=== PATIENT | female | born 1945 | race Caucasian/White ===

== ENCOUNTER 2024-10-01 14:51 | Inpatient (IN) | payer MEDICARE, MEDICAID, SELFPAY ==
[2024-10-01 15:18] VITALS: BP 131/65; BP 142/86; PULSE 82; PULSE 85; RESP 16; TEMP 36.8; O2SAT 96; BMI 36.6
--- NOTE | 2024-10-01 15:30 | PC.NURSE ---
Pt arrived via EMS on section 12, 1:1 sitter bedside. Pt is calm and cooperative, answering questions appropriately. Changed into hospital attire, urine collected and sent.
[2024-10-01 15:39] LABS: Appearance Urine Clear; Color Urine Yellow; Glucose Urine UA Negative (Negative); Leukocyte Esterase Urine Trace (Negative); Nitrite Urine Negative (Negative); PH 5.5 (5.0-9.0); UMIC TRIGGER UACC YES; Urine Blood Negative (Negative); Urine Ketones Negative (Negative); Urine Protein Negative (Neg-Trace)
[2024-10-01 15:41] LABS: Bacteria Urine 4+ (None Seen); Hyaline Casts Urine 0-2 /LPF (0-2); RBC Urine 0-2 /HPF (0-2); WBC Urine 0-5 /HPF (0-5)
[2024-10-01 15:53] LABS: Amphetamine Screen Urine Not Detected (Not Detect); Barbiturates, Urine Not Detected (Not Detect); Benzodiazepines Screen Urine Not Detected (Not Detect); Buprenorphine Scr Not Detected (Not Detect); Cannabinoid Screen Urine Not Detected (Not Detect); Cocaine Screen Urine Not Detected (Not Detect); Fentanyl, urine Not Detected (Not Detect); Methadone Screen, Urine Not Detected (Not Detect); Opiate Screen Urine Not Detected (Not Detect); Oxycodone Screen Urine Not Detected (Not Detect); Phencyclidine Screen Urine Not Detected (Not Detect)
[2024-10-01 16:32] LABS: MANUAL DIFF FLAG NO
[2024-10-01 16:36] LABS: Basophils Absolute Auto 0.1 X10*3/uL (0.0-0.2); Basophils Percent Auto 0.7 % (0-2); Eosinophils Absolute Auto 0.5 X10*3/uL (0.0-0.4); Eosinophils Percent Auto 4.8 % (0-4); Hematocrit 38.4 % (37.0-47.0); Hemoglobin 12.4 g/dl (12.0-16.0); Imm Gran Abs Auto 0.03 X10*3/uL (0.00-0.03); Imm Gran Pct Auto 0.3 % (0.0-0.4); Lymphocytes Absolute Auto 2.2 X10*3/uL (1.2-4.9); Lymphocytes Percent Auto 23.4 % (20-40); Mean Corpuscular HGB Conc 32.3 g/dl (31.0-35.0); Mean Corpuscular Hemoglobin 29.6 pg (27.0-33.0); Mean Corpuscular Volume 91.6 fL (80.0-98.0); Mean Platelet Volume 9.1 fL (9.4-12.3); Monocytes Absolute Auto 0.7 X10*3/uL (0.1-1.2); Monocytes Percent Auto 7.5 % (2-11); Neutrophils Percent Auto 63.3 % (45-73); Platelet Count 231 X10*3/uL (160-400); Red Blood Count 4.19 X10*6/uL (4.20-5.50); Red Cell Distribution Width 13.5 % (11.0-16.0); White Blood Count 9.4 X10*3/uL (4.8-10.8)
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
[2024-10-01 16:51] LABS: Alanine Aminotransferase < 6 U/L (0-31); Albumin Level 4.2 g/dL (3.5-5.0); Alkaline Phosphatase 93 U/L (39-117); Anion Gap 13 (12-20); Aspartate Amino Transferase 19 U/L (5-31); Bilirubin Total 0.2 mg/dL (0.0-1.0); Blood Urea Nitrogen 24 mg/dL (9-16); Calcium 9.7 mg/dL (8.4-10.2); Carbon Dioxide 27 mmol/L (22-29); Chloride 106 mmol/L (96-108); Creatinine Clr Calc Pharmacy 49.4; Estimated Glomerular Filt Rate 49; Ethanol < 10 mg/dL; Glucose Random 89 mg/dL (60-115); Potassium 4.1 mmol/L (3.3-5.1); Sodium 142 mmol/L (135-145); Total Protein 6.9 g/dL (6.5-8.0)
--- NOTE | 2024-10-01 17:12 | PC.NURSE ---
patient ambulated to bathroom, steady gait using walker. patient given sandwich and crackers for snack, with gingerale and water. patient remains calm and cooperative.
--- OUTSIDE RECORDS SUMMARY | 2024-10-01 17:50 | XMS_ITS | Clinical Summary ---
Author Organization [facility] ity Address [id number] [place] [id number] Care Team Providers Care Inhalation Therapist Name Role Phone Tara Montes De Oca MD Primary Care Provider [phone] Social History Tobacco Use Types Packs/Day Years Used Date Smoking Tobacco: Never Assessed Comments Unknown Sex and Gender Information Value Date Recorded Sex Assigned at Not on file Legal Sex Female 3:18 PM EST Gender Identity Not on file Sexual Orientation Not on file Plan of Treatment Health Maintenance Due Date Last Done Comments DTaP,Tdap,and Td Vaccines (1 - Tdap) 1964 Pneumococcal Vaccine: 50+ Ye ars (1 of 1 - PCV) 08/25/1995 Zoster Vaccines (1 of 2) 08/25/1995 RSV Immunization Adult Patie nts (1 - 1-dose 75+ series) 2020 Depression Screening 03/28/2022 Falls Risk Assessment 03/28/2022 Hepatitis C Screening 03/28/2022 Osteoporosis Screening (Bone Density Screening) 03/28/2022 Social Influencers of Health Screening 03/28/2022 COVID-19 Vaccine ( - 2023-2 5 season) 2023 Influenza Vaccine (Season Ended) 2024 HIB Vaccines Aged Out No longer eligi ble based on patient's age to complete this topic HPV Vaccines Aged Out No longer eligi ble based on patient's age to complete this topic Hepatitis A Vaccines Aged Out No long er eligible based on patient's age to complete this topic Hepatitis B Vaccines Aged Out No long er eligible based on patient's age to complete this topic IPV Vaccines Aged Out No longer eligi ble based on patient's age to complete this topic MMR Vaccines Aged Out No longer eligi ble based on patient's age to complete this topic Meningococcal ACWY Vaccine Aged Out N o longer eligible based on patient's age to complete this topic Meningococcal B Vaccine Aged Out No l onger eligible based on patient's age to complete this topic RSV Immunization Patients Un som 20 months Aged Out No longer eligible b ased on patient's age to complete this topic Varicella Vaccines Aged Out No longer eligible based on patient's age to complete this topic Advance Directives Documents on File Type Date Recorded Patient Interventional Sale Consultant Expl anation Health Care Decision (hx) 06/21/2017 AD VELAZQUEZ DIRECTIVE Health Care Decision (hx) 06/21/2017 AD VELAZQUEZ DIRECTIVE Health Care Decision (hx) 06/21/2017 AD VELAZQUEZ DIRECTIVE Health Care Decision (hx) 06/21/2017 AD VELAZQUEZ DIRECTIVE Health Care Decision (hx) 06/21/2017 AD VELAZQUEZ DIRECTIVE Health Care Decision (hx) 06/21/2017 AD VELAZQUEZ DIRECTIVE Health Care Decision (hx) 08/10/2011 AD VELAZQUEZ DIRECTIVE Health Care Decision (hx) 08/10/2011 AD VELAZQUEZ DIRECTIVE Health Care Decision (hx) 08/10/2011 AD VELAZQUEZ DIRECTIVE Health Care Decision (hx) 08/10/2011 AD VELAZQUEZ DIRECTIVE Health Care Decision (hx) 08/10/2011 AD VELAZQUEZ DIRECTIVE Health Care Decision (hx) 08/10/2011 AD VELAZQUEZ DIRECTIVE Care Teams Inhalation Therapist Relationship Specialty Start Date End Date Tara Montes De Oca MD [address] [place] [id number] PCP - General 05/11/22
[2024-10-01 18:08] VITALS: BP 130/61; PULSE 83; RESP 16; TEMP 36.1; O2SAT 93
--- NOTE | 2024-10-01 19:15 | PC.NURSE ---
assumed care of pt at 1900. report received from Senait AVILA
--- NOTE | 2024-10-01 20:07 | PC.NURSE ---
this RN called the care team to inquire about an update on the patient's disposition status. per care team patient was seen in the community by N, was placed on a section 12 and is already a bed search.
[2024-10-01] MEDS: LORazepam 1 MG TABLET PO (21:51)
--- NOTE | 2024-10-01 23:21 | PC.NURSE ---
patient ambulated to and from bathroom with this RN using walker, steady gait. pt placed into hospital bed and given ativan po as requested. pt calm, cooperative, conversive and in no distress. denies any acute complaints or pain. med rec completed and home meds ordered by MD rutherford. pt states she wears cpap at night however does not like the machines we have here as she is claustrophobic and cannot tolerate the full face mask. requested to sleep with just 2L NC instead for sleep apnea. RT okay'd. dentures in cup at bedside. pt given ice and water as requested. call lange within reach, sleeping comfortably in no distress. resp even and unlabored. 1:1 sitter at bedside.
[2024-10-01 23:43] VITALS: BP 111/54; PULSE 65; RESP 16; TEMP 36.6; O2SAT 98
--- NOTE | 2024-10-02 | ECG_ITS ---
Test Reason : CLEARANCE Blood Pressure : */* mmHG Vent. Rate : 73 BPM Atrial Rate : 73 BPM P-R Int : 206 ms QRS Dur : 96 ms QT Int : 398 ms P-R-T Axes : 73 57 51 degrees QTcB Int : 438 ms Sinus rhythm with Fusion complexes Low voltage QRS Incomplete right bundle branch block Borderline ECG No previous ECGs available Referred By: Eugene Boyce Electronically Signed By: Tariq Melendrez
[2024-10-02] MEDS: Acetaminophen 325 MG TABLET 975 MG PO (02:35)
[2024-10-02] MEDS: Carbidopa/Levodopa 25/100 TABLET 1 TAB PO ×3 (02:35→21:40)
[2024-10-02 06:31] VITALS: BP 109/61; PULSE 65; RESP 16; TEMP 36.4; O2SAT 95
[2024-10-02] MEDS: Omeprazole 40 MG CAPSULE.DR PO (07:01)
--- NOTE | 2024-10-02 07:04 | PC.NURSE ---
Pt presented to [facility] via EMS on a section 12 issued by [facility] (N). It was reported upon arrival that pt was evaluated in the community at the request of her daughter due to increased depressive symptoms and paranoia and did not appear to be functioning at her baseline. Per [facility] Crisis she was found appropriate for a higher level of care and sent to the ED to board for placement as well as to be fully medically cleared. Family reported a history of dementia and other long standing mental health issues and indicated that she has been increasingly paranoid at her current assisted living. Pt denied current suicidal or homicidal ideation, plan, or intent however, remains focused on people breaking into her current living arrangement and taking her belongings and remains increasingly paranoid. Patient alert and oriented, pleasant and cooperative. Lungs clear bilat. Respirations even and non-labored. Abdomen large, soft, non-tender with positive bowel sounds. Positive pedal pulses with LE edema noted. Patient states she usually wears TEDS. Constant observation maintained for patients safety.
--- NOTE | 2024-10-02 08:00 | MHC.EDTECH ---
Performed ADL's care on patient full bed bath changed linen patient brushed teeth and hair.patient is a stand by assist with walker. Patient is calm and pleasant no distress, Nurse aware.
--- NOTE | 2024-10-02 08:30 | PHA.MEDREC ---
Pharmacy Consult ? Medication Reconciliation Pharmacy has reviewed the medication reconciliation done by RN. Claims utilized.
[2024-10-02] MEDS: Sertraline HCL 100 MG TABLET PO (09:02)
[2024-10-02] MEDS: Furosemide 20 MG TABLET PO (09:02)
[2024-10-02] MEDS: metFORMIN HCl 500 MG TABLET PO (09:02)
[2024-10-02] MEDS: Sucralfate 1 GM TABLET PO ×3 (09:02→21:40)
[2024-10-02] MEDS: buPROPion HCl XL 150 MG TAB.ER.24H PO (09:03)
[2024-10-02] MEDS: amLODIPine Besylate 5 MG TABLET PO (09:03)
[2024-10-02] MEDS: Sertraline HCL 50 MG TABLET PO (09:03)
--- NOTE | 2024-10-02 14:42 | MHC.CARE ---
Pt was seen for psych consult per Liv Brady INTELLIGENCE SUPPORT OFFICER patient will require inpatient level of care. see psychiatry note for additional recommendations.
[2024-10-02 15:07] VITALS: BP 124/62; PULSE 70; RESP 16; TEMP 36.2; O2SAT 98
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
[2024-10-02 19:06] VITALS: BP 105/60; PULSE 79; RESP 12; TEMP 36.9; O2SAT 92
--- NOTE | 2024-10-02 19:13 | PC.NURSE ---
Took over care from RN Yaz, pt repositioned in bed, pt main on a 1:1. no sign of distress.
--- NOTE | 2024-10-02 19:24 | MHC.EDTECH ---
pt consumed 100% of dinner tray, vitals obtained
[2024-10-02] MEDS: Pravastatin Sodium 20 MG TABLET PO (21:40)
[2024-10-02] MEDS: LORazepam 1 MG TABLET PO (21:45)
--- NOTE | 2024-10-02 21:47 | PC.NURSE ---
medicated per jun, and give report to AUSTIN Bella
[2024-10-02 22:11] VITALS: BP 109/52; PULSE 63; RESP 12; TEMP 36.5; O2SAT 96
[2024-10-03 06:12] VITALS: BP 113/62; PULSE 66; RESP 20; TEMP 36.8; O2SAT 94
[2024-10-03] MEDS: Omeprazole 40 MG CAPSULE.DR PO (06:16)
[2024-10-03] MEDS: Acetaminophen 325 MG TABLET 650 MG PO (06:16)
[2024-10-03 09:50] VITALS: BP 112/50; PULSE 67; RESP 18; TEMP 36.6; O2SAT 95
[2024-10-03] MEDS: Carbidopa/Levodopa 25/100 TABLET 1 TAB PO ×2 (09:52→20:35)
[2024-10-03] MEDS: Sucralfate 1 GM TABLET PO ×4 (09:52→20:35)
[2024-10-03] MEDS: Furosemide 20 MG TABLET PO (09:52)
[2024-10-03] MEDS: Sertraline HCL 50 MG TABLET PO (09:52)
[2024-10-03] MEDS: amLODIPine Besylate 5 MG TABLET PO (09:52)
[2024-10-03] MEDS: buPROPion HCl XL 150 MG TAB.ER.24H PO (09:52)
[2024-10-03] MEDS: Sertraline HCL 100 MG TABLET PO (09:52)
[2024-10-03] MEDS: metFORMIN HCl 500 MG TABLET PO (09:52)
--- NOTE | 2024-10-03 09:54 | MHC.CARE ---
Pt seen by CARE team and [facility], disposition is for inpatient Zeynep admission.
--- NOTE | 2024-10-03 13:49 | PC.NURSE ---
pt calm and cooperative with care. no behavioral concerns at this time.
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
[2024-10-03 19:05] VITALS: BP 122/65; PULSE 78; RESP 16; TEMP 36.1; O2SAT 94
[2024-10-03 19:06] VITALS: BMI 32.6
[2024-10-03 20:00] VITALS: BP 108/60; PULSE 74; RESP 18; TEMP 36.4; O2SAT 99
[2024-10-03] MEDS: Pravastatin Sodium 20 MG TABLET PO (20:35)
[2024-10-03] MEDS: LORazepam 1 MG TABLET PO (21:20)
[2024-10-04] MEDS: Acetaminophen 325 MG TABLET 650 MG PO ×2 (05:23→16:26)
[2024-10-04] MEDS: Omeprazole 40 MG CAPSULE.DR PO (06:00)
[2024-10-04 08:00] VITALS: BP 120/57; PULSE 73; RESP 16; TEMP 36.7; O2SAT 94
[2024-10-04 08:24] LABS: Estimated Average Glucose 120 mg/dL; Hemoglobin A1c % 5.8 % (<6.0)
[2024-10-04 08:41] LABS: Alanine Aminotransferase 9 U/L (0-31); Alkaline Phosphatase 82 U/L (39-117); Anion Gap 12 (12-20); Aspartate Amino Transferase 20 U/L (5-31); Bilirubin Total 0.3 mg/dL (0.0-1.0); Blood Urea Nitrogen 30 mg/dL (9-16); Carbon Dioxide 31 mmol/L (22-29); Chloride 101 mmol/L (96-108); Cholesterol 172 mg/dL (<200); Creatinine Clr Calc Pharmacy 38.9; Estimated Glomerular Filt Rate 40; Glucose Random 110 mg/dL (60-115); HDL Cholesterol 39 mg/dL (>40); LDL Cholesterol Calculated 92 mg/dL (<100); Magnesium 1.9 mg/dL (1.6-2.6); Potassium 4.2 mmol/L (3.3-5.1); Sodium 140 mmol/L (135-145); Total Protein 6.7 g/dL (6.5-8.0); Triglycerides 208 mg/dL (<150)
[2024-10-04 08:43] VITALS: BP 120/57
[2024-10-04] MEDS: metFORMIN HCl 500 MG TABLET PO (08:43)
[2024-10-04] MEDS: Sertraline HCL 100 MG TABLET PO (08:43)
[2024-10-04] MEDS: amLODIPine Besylate 5 MG TABLET PO (08:43)
[2024-10-04 08:44] VITALS: BP 120/57
[2024-10-04] MEDS: Sucralfate 1 GM TABLET PO ×4 (08:44→20:07)
[2024-10-04] MEDS: Carbidopa/Levodopa 25/100 TABLET 1 TAB PO ×2 (08:44→20:07)
[2024-10-04] MEDS: Sertraline HCL 50 MG TABLET PO (08:44)
[2024-10-04] MEDS: buPROPion HCl XL 150 MG TAB.ER.24H PO (08:44)
[2024-10-04] MEDS: Furosemide 20 MG TABLET PO (08:44)
[2024-10-04 08:56] LABS: Free T4 (Free Thyroxine) 0.88 ng/dL (0.71-1.85); Thyroid Stimulating Hormone 2.36 uIU/mL (0.32-4.0)
[2024-10-04 09:12] LABS: Folate 11.2 ng/mL (> or = 4.0); Vitamin B12 174 pg/mL (200-900)
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
[2024-10-04 13:47] VITALS: BMI 36.2
[2024-10-04] MEDS: Brexpiprazole 1 MG TABLET 0.5 MG PO (18:40)
[2024-10-04 19:57] VITALS: BP 112/56; PULSE 62; RESP 18; TEMP 2.3; TEMP 36.1; O2SAT 95
[2024-10-04] MEDS: Pravastatin Sodium 20 MG TABLET PO (20:07)
[2024-10-04] MEDS: Cyanocobalamin (Vitamin B-12) 1,000 MCG/ML VIAL 1000 MCG IM (20:55)
[2024-10-04 22:00] VITALS: RESP 18
[2024-10-05] MEDS: Acetaminophen 325 MG TABLET 650 MG PO ×3 (02:23→21:31)
[2024-10-05] MEDS: Omeprazole 40 MG CAPSULE.DR PO (06:06)
--- NOTE | 2024-10-05 06:21 | PC.NURSE ---
Vitamin B12 was scheduled per JUN; however, the medication was unavailable at the pharmacy and could not be administered early as scheduled. Administered late once made available.
[2024-10-05 08:00] VITALS: BP 121/58; PULSE 62; RESP 12; TEMP 36.3; O2SAT 95
[2024-10-05] MEDS: Brexpiprazole 1 MG TABLET 0.5 MG PO (08:50)
[2024-10-05] MEDS: Sertraline HCL 50 MG TABLET PO (08:51)
[2024-10-05] MEDS: Sucralfate 1 GM TABLET PO ×4 (08:51→20:39)
[2024-10-05] MEDS: Furosemide 20 MG TABLET PO (08:52)
[2024-10-05] MEDS: amLODIPine Besylate 5 MG TABLET PO (08:53)
[2024-10-05] MEDS: metFORMIN HCl 500 MG TABLET PO (08:57)
[2024-10-05] MEDS: Sertraline HCL 100 MG TABLET PO (09:00)
[2024-10-05] MEDS: Carbidopa/Levodopa 25/100 TABLET 1 TAB PO ×2 (09:02→20:39)
[2024-10-05 10:52] LABS: Alanine Aminotransferase 10 U/L (0-31); Albumin Level 4.2 g/dL (3.5-5.0); Alkaline Phosphatase 90 U/L (39-117); Anion Gap 11 (12-20); Aspartate Amino Transferase 20 U/L (5-31); Bilirubin Total 0.3 mg/dL (0.0-1.0); Blood Urea Nitrogen 27 mg/dL (9-16); Calcium 10.1 mg/dL (8.4-10.2); Carbon Dioxide 29 mmol/L (22-29); Chloride 102 mmol/L (96-108); Creatinine Clr Calc Pharmacy 44.5; Estimated Glomerular Filt Rate 44; Glucose Random 136 mg/dL (60-115); Potassium 3.9 mmol/L (3.3-5.1); Sodium 138 mmol/L (135-145); Total Protein 6.9 g/dL (6.5-8.0)
--- NOTE | 2024-10-05 14:57 | PM.EVENT ---
Event Note Date of Service: 10/05/24 Event Note: Patient seen briefly due to edema in her legs. Patient reports that she wears TEDS at home and would like to have some ordered here. Time Spent With Patient Time: Total time managing care of this patient today ____ minutes.
[2024-10-05 20:00] VITALS: BP 145/66; PULSE 67; RESP 16; TEMP 36.8; O2SAT 98
[2024-10-05] MEDS: Pravastatin Sodium 20 MG TABLET PO (20:39)
[2024-10-05] MEDS: LORazepam 1 MG TABLET PO (20:48)
[2024-10-06] MEDS: Acetaminophen 325 MG TABLET 650 MG PO (04:08)
[2024-10-06] MEDS: Omeprazole 40 MG CAPSULE.DR PO (06:06)
[2024-10-06 08:12] VITALS: BP 107/52; PULSE 60; RESP 18; TEMP 36.4; O2SAT 96
[2024-10-06] MEDS: Sertraline HCL 50 MG TABLET PO (08:40)
[2024-10-06] MEDS: Sertraline HCL 100 MG TABLET PO (08:41)
[2024-10-06] MEDS: Brexpiprazole 1 MG TABLET 0.5 MG PO (08:41)
[2024-10-06] MEDS: Furosemide 20 MG TABLET PO (08:41)
[2024-10-06] MEDS: Carbidopa/Levodopa 25/100 TABLET 1 TAB PO ×2 (08:42→19:57)
[2024-10-06] MEDS: metFORMIN HCl 500 MG TABLET PO (08:43)
[2024-10-06] MEDS: amLODIPine Besylate 5 MG TABLET PO (08:43)
[2024-10-06] MEDS: Sucralfate 1 GM TABLET PO ×4 (08:43→19:57)
[2024-10-06] MEDS: Lidocaine 4 % Patch ADH..PATCH 2 PATCH TRANSDERMA (10:59)
[2024-10-06 19:54] VITALS: BP 117/60; PULSE 70; RESP 16; TEMP 36.5; O2SAT 94
[2024-10-06] MEDS: Pravastatin Sodium 20 MG TABLET PO (19:57)
[2024-10-06] MEDS: LORazepam 1 MG TABLET PO (21:08)
[2024-10-06] MEDS: Nystatin Powder 15 GM BOTTLE 1 APPL TOPICAL (21:09)
--- NOTE | 2024-10-07 05:22 | HO.PSYCHPN ---
Subjective Subjective Date of Service: 10/06/24 Reason For Visit: paranoia Interim History: Pt seen and discussed with the team. Reports pain in her R hip/buttock. Lidocaine Patch ordered. Pt reports she is feeling comfortable on the unit, tolerating medications and participating in the milieu. Medication Compliance: Yes Side effects from medications: No Attending Groups: Yes Review of Systems Acute medical concerns: No Review of Systems Review of Systems Pain R hip Mental Status Exam Mental Status Exam Patient Appearance: Appropriate Patient Orientation: Person and Place Level of Consciousness: Alert Patient Behavior: Talkative Mood Description: Depressed Affect Description: Flat Patient Cognition Impaired: Yes Ability to Follow Directions: Fair Speech Pattern: Spontaneous Speech Memory Description: Remote Impaired Thought Content: positive for Suicidal Ideation (denies) Judgement: Poor Diagnostics Vital Signs (24Hr): Vital Signs - 24 hr 10/06/24 08:12 10/06/24 19:54 Temperature 97.5 F 97.7 F Pulse Rate 60 70 Respiratory Rate 18 16 Blood Pressure 107/52 L 117/60 Pulse Oximetry 96 94 Oxygen Delivery Method Room Air Room Air BMI result Body Mass Index 36.2 Labs 10/01/24 16:10 10/05/24 10:30 Labs: Laboratory Results - last 48 hr 10/05/24 10:30 Sodium 138 Potassium 3.9 Chloride 102 Carbon Dioxide 29 Anion Gap 11 L BUN 27 H Creatinine 1.19 Estim Creat Clear Calc 44.5 Estimated GFR 44 Random Glucose 136 H Calcium 10.1 Total Bilirubin 0.3 AST 20 ALT 10 Alkaline Phosphatase 90 Total Protein 6.9 Albumin 4.2 Medications Medications Current Medications Acetaminophen (Acetaminophen 325 Mg Tablet) 650 mg PO Q6H PRN PRN Reason: Headache/Pain, Scale 1-10 Last Admin: 10/06/24 04:08 Dose: 650 mg Al Hydroxide/Mg Hydroxide (Magnesium Hydrox/Alum Hydrox 30 Ml Oral.Susp) 30 ml PO Q6H PRN PRN Reason: Heartburn/Nausea Amlodipine Besylate (Amlodipine Besylate 5 Mg Tablet) 5 mg PO DAILY [facility]; Protocol Last Admin: 10/06/24 08:43 Dose: 5 mg Brexpiprazole (Brexpiprazole 1 Mg Tablet) 0.5 mg PO DAILY [facility] Last Admin: 10/06/24 08:41 Dose: 0.5 mg Carbidopa/Levodopa (Carbidopa/Levodopa 25/100 Tablet) 1 tab PO BID [facility] Last Admin: 10/06/24 19:57 Dose: 1 tab Cyanocobalamin (Cyanocobalamin (Vitamin B-12) 1,000 Mcg/Ml Vial) 1,000 mcg IM Q7D [facility] Stop: 10/25/24 17:16 Last Admin: 10/04/24 20:55 Dose: 1,000 mcg Furosemide (Furosemide 20 Mg Tablet) 20 mg PO DAILY [facility]; Protocol Last Admin: 10/06/24 08:41 Dose: 20 mg Lidocaine (Lidocaine 4 % Patch Adh..Patch) 2 patch TRANSDERMA DAILY [facility]; Protocol Last Admin: 10/06/24 10:59 Dose: 2 patch Lorazepam (Lorazepam 1 Mg Tablet) 1 mg PO BEDTIME PRN PRN Reason: Anxiety Last Admin: 10/06/24 21:08 Dose: 1 mg Magnesium Hydroxide (Milk Of Magnesia 30 Ml Oral.Susp) 30 ml PO DAILY PRN PRN Reason: Constipation Metformin HCl (Metformin Hcl 500 Mg Tablet) 500 mg PO DAILY [facility] Last Admin: 10/06/24 08:43 Dose: 500 mg Nystatin (Nystatin Powder 15 Gm Bottle) 1 appl TOPICAL TID [facility]; Protocol Last Admin: 10/06/24 21:09 Dose: 1 appl Omeprazole (Omeprazole 40 Mg Capsule.Dr) 40 mg PO DAILY@0630 [facility] Last Admin: 10/06/24 06:06 Dose: 40 mg Pravastatin Sodium (Pravastatin Sodium 20 Mg Tablet) 20 mg PO BEDTIME [facility] Last Admin: 10/06/24 19:57 Dose: 20 mg Sertraline HCl (Sertraline Hcl 50 Mg Tablet) 50 mg PO DAILY [facility] Last Admin: 10/06/24 08:40 Dose: 50 mg Sertraline HCl (Sertraline Hcl 100 Mg Tablet) 100 mg PO DAILY [facility] Last Admin: 10/06/24 08:41 Dose: 100 mg Sucralfate (Sucralfate 1 Gm Tablet) 1 gm PO QID [facility] Last Admin: 10/06/24 19:57 Dose: 1 gm Trazodone HCl (Trazodone Hcl 50 Mg Tablet) 50 mg PO BEDTIME PRN PRN Reason: Insomnia Allergies Allergies Allergy/AdvReac Type Severity Reaction Status Date / Time No Known Allergies Allergy Verified 10/01/24 15:21 Assessment & Plan Assessment & Plan (1) Lewy body dementia with psychotic disturbance: Status: Acute Code(s): G31.83 - Neurocognitive disorder with Lewy bodies; F02.82 - Dementia in other diseases classified elsewhere, unspecified severity, with psychotic disturbance Plan Mrs. Holland is a 79 year-old woman with hx of Lewy BOdy Dementia who was brought to [facility] due to increase paranoid delusions of people entering her room and stealing from her. It appears this has been going on for the past year but with increase intensity now. She is on number of medication with dopaminergic properties which can contribute or exacerbate delusions and/or psychosis including wellbutrin and sinemmet. We discussed inpatient psych admission for management of paranoid delusions given that in context of Lewy Body Dementia individuals tend to be very sensity to psychotropic medications, especially use of antipsychotic. 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 Pt is in agreement to inpt admission. Left VM to daughter Marcie to discuss dispo and medication changes. Will contact OP psych provider also to coordinate care. PLAN 1. Admit to S1, CV, 5 minutes checks for safety. 2. d/c wellutrin. Start rexulti 0.5mg po daily for paranoid delusions. monitor exacerbation of motor s/s of LBD. 3. obtain collateral information 4. OT assessments 5. Aftercare planning. 10/06: Lidocaine Patch, R Hip, Buttock ordered Reason for continued inpatient stay Substantial Risk for: rapid decompensation and med/psych decompensation Time Spent With Patient Time: Total time managing care of this patient today ____ minutes.
--- NOTE | 2024-10-07 05:26 | HO.PSYCHPN ---
Subjective Subjective Date of Service: 10/07/24 Reason For Visit: paranoia Interim History: Pt seen, discussed with the team. Pt actively participating in milieu. Team reports pt is less anxious, settling in, eating and reports pain is improved. Pt concurs, I am feeling better. Medication Compliance: Yes Side effects from medications: No Attending Groups: Yes Review of Systems Acute medical concerns: No Review of Systems Review of Systems Denies today Mental Status Exam Mental Status Exam Patient Appearance: Appropriate Patient Orientation: Person and Place Level of Consciousness: Alert Patient Behavior: Talkative Mood Description: Calm and Constricted Affect Description: Constricted Patient Cognition Impaired: Yes Ability to Follow Directions: Fair Speech Pattern: Spontaneous Speech Memory Description: Remote Impaired Thought Content: positive for Suicidal Ideation (denies) Judgement: Poor Diagnostics Vital Signs (24Hr): Vital Signs - 24 hr 10/06/24 08:12 10/06/24 19:54 Temperature 97.5 F 97.7 F Pulse Rate 60 70 Respiratory Rate 18 16 Blood Pressure 107/52 L 117/60 Pulse Oximetry 96 94 Oxygen Delivery Method Room Air Room Air BMI result Body Mass Index 36.2 Labs 10/01/24 16:10 10/05/24 10:30 Labs: Laboratory Results - last 48 hr 10/05/24 10:30 Sodium 138 Potassium 3.9 Chloride 102 Carbon Dioxide 29 Anion Gap 11 L BUN 27 H Creatinine 1.19 Estim Creat Clear Calc 44.5 Estimated GFR 44 Random Glucose 136 H Calcium 10.1 Total Bilirubin 0.3 AST 20 ALT 10 Alkaline Phosphatase 90 Total Protein 6.9 Albumin 4.2 Medications Medications Current Medications Acetaminophen (Acetaminophen 325 Mg Tablet) 650 mg PO Q6H PRN PRN Reason: Headache/Pain, Scale 1-10 Last Admin: 10/06/24 04:08 Dose: 650 mg Al Hydroxide/Mg Hydroxide (Magnesium Hydrox/Alum Hydrox 30 Ml Oral.Susp) 30 ml PO Q6H PRN PRN Reason: Heartburn/Nausea Amlodipine Besylate (Amlodipine Besylate 5 Mg Tablet) 5 mg PO DAILY [facility]; Protocol Last Admin: 10/06/24 08:43 Dose: 5 mg Brexpiprazole (Brexpiprazole 1 Mg Tablet) 0.5 mg PO DAILY [facility] Last Admin: 10/06/24 08:41 Dose: 0.5 mg Carbidopa/Levodopa (Carbidopa/Levodopa 25/100 Tablet) 1 tab PO BID [facility] Last Admin: 10/06/24 19:57 Dose: 1 tab Cyanocobalamin (Cyanocobalamin (Vitamin B-12) 1,000 Mcg/Ml Vial) 1,000 mcg IM Q7D [facility] Stop: 10/25/24 17:16 Last Admin: 10/04/24 20:55 Dose: 1,000 mcg Furosemide (Furosemide 20 Mg Tablet) 20 mg PO DAILY [facility]; Protocol Last Admin: 10/06/24 08:41 Dose: 20 mg Lidocaine (Lidocaine 4 % Patch Adh..Patch) 2 patch TRANSDERMA DAILY [facility]; Protocol Last Admin: 10/06/24 10:59 Dose: 2 patch Lorazepam (Lorazepam 1 Mg Tablet) 1 mg PO BEDTIME PRN PRN Reason: Anxiety Last Admin: 10/06/24 21:08 Dose: 1 mg Magnesium Hydroxide (Milk Of Magnesia 30 Ml Oral.Susp) 30 ml PO DAILY PRN PRN Reason: Constipation Metformin HCl (Metformin Hcl 500 Mg Tablet) 500 mg PO DAILY [facility] Last Admin: 10/06/24 08:43 Dose: 500 mg Nystatin (Nystatin Powder 15 Gm Bottle) 1 appl TOPICAL TID [facility]; Protocol Last Admin: 10/06/24 21:09 Dose: 1 appl Omeprazole (Omeprazole 40 Mg Capsule.Dr) 40 mg PO DAILY@0630 [facility] Last Admin: 10/06/24 06:06 Dose: 40 mg Pravastatin Sodium (Pravastatin Sodium 20 Mg Tablet) 20 mg PO BEDTIME [facility] Last Admin: 10/06/24 19:57 Dose: 20 mg Sertraline HCl (Sertraline Hcl 50 Mg Tablet) 50 mg PO DAILY [facility] Last Admin: 10/06/24 08:40 Dose: 50 mg Sertraline HCl (Sertraline Hcl 100 Mg Tablet) 100 mg PO DAILY [facility] Last Admin: 10/06/24 08:41 Dose: 100 mg Sucralfate (Sucralfate 1 Gm Tablet) 1 gm PO QID [facility] Last Admin: 10/06/24 19:57 Dose: 1 gm Trazodone HCl (Trazodone Hcl 50 Mg Tablet) 50 mg PO BEDTIME PRN PRN Reason: Insomnia Allergies Allergies Allergy/AdvReac Type Severity Reaction Status Date / Time No Known Allergies Allergy Verified 10/01/24 15:21 Assessment & Plan Assessment & Plan (1) Lewy body dementia with psychotic disturbance: Status: Acute Code(s): G31.83 - Neurocognitive disorder with Lewy bodies; F02.82 - Dementia in other diseases classified elsewhere, unspecified severity, with psychotic disturbance Plan Mrs. Holland is a 79 year-old woman with hx of Lewy BOdy Dementia who was brought to [facility] [place] [facility] due to increase paranoid delusions of people entering her room and stealing from her. It appears this has been going on for the past year but with increase intensity now. She is on number of medication with dopaminergic properties which can contribute or exacerbate delusions and/or psychosis including wellbutrin and sinemmet. We discussed inpatient psych admission for management of paranoid delusions given that in context of Lewy Body Dementia individuals tend to be very sensity to psychotropic medications, especially use of antipsychotic. 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 Pt is in agreement to inpt admission. Left VM to daughter Marcie to discuss dispo and medication changes. Will contact OP psych provider also to coordinate care. PLAN 1. Admit to S1, CV, 5 minutes checks for safety. 2. d/c wellutrin. Start rexulti 0.5mg po daily for paranoid delusions. monitor exacerbation of motor s/s of LBD. 3. obtain collateral information 4. OT assessments 5. Aftercare planning. 10/07: Continue tx Reason for continued inpatient stay Substantial Risk for: rapid decompensation Time Spent With Patient Time: Total time managing care of this patient today ____ minutes.
[2024-10-07] MEDS: Omeprazole 40 MG CAPSULE.DR PO (05:32)
[2024-10-07] MEDS: Lidocaine 4 % Patch ADH..PATCH 2 PATCH TRANSDERMA (05:47)
--- NOTE | 2024-10-07 06:12 | PC.NURSE ---
Patient requested her AM lidocaine patch, administered as requested, provider made aware, and Okayed it.
[2024-10-07 08:42] VITALS: BP 104/58; PULSE 67; RESP 18; TEMP 36.2; O2SAT 94
[2024-10-07] MEDS: Nystatin Powder 15 GM BOTTLE 1 APPL TOPICAL ×3 (08:44→21:05)
[2024-10-07] MEDS: Brexpiprazole 1 MG TABLET 0.5 MG PO (08:45)
[2024-10-07] MEDS: Sertraline HCL 50 MG TABLET PO (08:46)
[2024-10-07] MEDS: Sucralfate 1 GM TABLET PO ×4 (08:46→20:25)
[2024-10-07] MEDS: Carbidopa/Levodopa 25/100 TABLET 1 TAB PO ×2 (08:46→20:25)
[2024-10-07] MEDS: metFORMIN HCl 500 MG TABLET PO (08:47)
[2024-10-07] MEDS: Sertraline HCL 100 MG TABLET PO (08:47)
[2024-10-07] MEDS: Furosemide 20 MG TABLET PO (08:47)
[2024-10-07] MEDS: amLODIPine Besylate 5 MG TABLET PO (08:48)
[2024-10-07 20:00] VITALS: BP 124/60; PULSE 82; RESP 18; TEMP 36.6; O2SAT 93
[2024-10-07] MEDS: Pravastatin Sodium 20 MG TABLET PO (20:25)
[2024-10-07] MEDS: Acetaminophen 325 MG TABLET 650 MG PO (23:00)
[2024-10-08] MEDS: Omeprazole 40 MG CAPSULE.DR PO (05:42)
[2024-10-08 08:00] VITALS: BP 125/66; PULSE 70; RESP 18; TEMP 36.5; O2SAT 97
[2024-10-08] MEDS: Lidocaine 4 % Patch ADH..PATCH 2 PATCH TRANSDERMA (08:50)
[2024-10-08 08:51] VITALS: BP 125/66
[2024-10-08] MEDS: amLODIPine Besylate 5 MG TABLET PO (08:51)
[2024-10-08] MEDS: Furosemide 20 MG TABLET PO (08:51)
[2024-10-08] MEDS: Sertraline HCL 100 MG TABLET PO (08:52)
[2024-10-08] MEDS: Sucralfate 1 GM TABLET PO ×4 (08:52→20:58)
[2024-10-08] MEDS: metFORMIN HCl 500 MG TABLET PO (08:52)
[2024-10-08] MEDS: Carbidopa/Levodopa 25/100 TABLET 1 TAB PO ×2 (08:52→20:59)
[2024-10-08] MEDS: Sertraline HCL 50 MG TABLET PO (08:52)
[2024-10-08] MEDS: Brexpiprazole 1 MG TABLET 0.5 MG PO (08:54)
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
[2024-10-08] MEDS: Nystatin Powder 15 GM BOTTLE 1 APPL TOPICAL ×2 (10:49→14:45)
[2024-10-08] MEDS: Acetaminophen 325 MG TABLET 650 MG PO ×2 (10:49→21:13)
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
[2024-10-08 20:00] VITALS: BP 116/57; PULSE 65; RESP 16; TEMP 36.8; O2SAT 94
[2024-10-08] MEDS: Pravastatin Sodium 20 MG TABLET PO (20:59)
[2024-10-08] MEDS: LORazepam 1 MG TABLET PO (21:13)
[2024-10-08 22:29] VITALS: PULSE 68; RESP 18; O2SAT 97
[2024-10-09] MEDS: Omeprazole 40 MG CAPSULE.DR PO (05:59)
[2024-10-09] MEDS: Acetaminophen 325 MG TABLET 650 MG PO (06:09)
[2024-10-09 08:00] VITALS: BP 115/61; PULSE 62; RESP 16; TEMP 36.7; O2SAT 95
[2024-10-09 08:40] VITALS: BP 115/61
[2024-10-09] MEDS: Furosemide 20 MG TABLET PO (08:40)
[2024-10-09] MEDS: Sucralfate 1 GM TABLET PO ×4 (08:40→20:24)
[2024-10-09] MEDS: Sertraline HCL 100 MG TABLET PO (08:40)
[2024-10-09] MEDS: Sertraline HCL 50 MG TABLET PO (08:40)
[2024-10-09] MEDS: metFORMIN HCl 500 MG TABLET PO (08:40)
[2024-10-09] MEDS: Carbidopa/Levodopa 25/100 TABLET 1 TAB PO ×2 (08:40→20:24)
[2024-10-09 08:41] VITALS: BP 115/61
[2024-10-09] MEDS: Brexpiprazole 1 MG TABLET 0.5 MG PO (08:41)
[2024-10-09] MEDS: amLODIPine Besylate 5 MG TABLET PO (08:41)
[2024-10-09] MEDS: Nystatin Powder 15 GM BOTTLE 1 APPL TOPICAL ×2 (08:44→16:24)
[2024-10-09] MEDS: Lidocaine 4 % Patch ADH..PATCH 2 PATCH TRANSDERMA (08:44)
[2024-10-09 09:34] LABS: Estimated Glomerular Filt Rate 44
[2024-10-09 20:00] VITALS: BP 118/60; PULSE 66; RESP 18; TEMP 36.3; O2SAT 92
[2024-10-09] MEDS: Pravastatin Sodium 20 MG TABLET PO (20:24)
[2024-10-09] MEDS: LORazepam 1 MG TABLET PO (20:32)
[2024-10-09 23:42] VITALS: PULSE 61; RESP 15; O2SAT 98
[2024-10-10] MEDS: Omeprazole 40 MG CAPSULE.DR PO (06:05)
[2024-10-10] MEDS: Acetaminophen 325 MG TABLET 650 MG PO (06:14)
[2024-10-10 08:00] VITALS: BP 140/63; PULSE 69; RESP 16; TEMP 36.6; O2SAT 98
[2024-10-10] MEDS: Sertraline HCL 50 MG TABLET PO (08:45)
[2024-10-10] MEDS: Brexpiprazole 1 MG TABLET 0.5 MG PO (08:45)
[2024-10-10] MEDS: Sucralfate 1 GM TABLET PO ×4 (08:46→20:55)
[2024-10-10] MEDS: Carbidopa/Levodopa 25/100 TABLET 1 TAB PO ×2 (08:46→20:55)
[2024-10-10] MEDS: amLODIPine Besylate 5 MG TABLET PO (08:46)
[2024-10-10] MEDS: metFORMIN HCl 500 MG TABLET PO (08:46)
[2024-10-10] MEDS: Sertraline HCL 100 MG TABLET PO (08:46)
[2024-10-10] MEDS: Furosemide 20 MG TABLET PO (08:47)
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
[2024-10-10] MEDS: Lidocaine 4 % Patch ADH..PATCH 2 PATCH TRANSDERMA (12:22)
[2024-10-10 20:00] VITALS: BP 113/60; PULSE 63; RESP 18; TEMP 36.4; O2SAT 97
[2024-10-10] MEDS: Pravastatin Sodium 20 MG TABLET PO (20:55)
[2024-10-10] MEDS: LORazepam 1 MG TABLET PO (20:58)
[2024-10-10 22:40] VITALS: RESP 18
[2024-10-11] MEDS: Omeprazole 40 MG CAPSULE.DR PO (05:57)
[2024-10-11 08:00] VITALS: BP 116/57; PULSE 71; RESP 13; TEMP 2.6; TEMP 36.7; O2SAT 97; BMI 36.4
[2024-10-11] MEDS: Lidocaine 4 % Patch ADH..PATCH 2 PATCH TRANSDERMA (09:05)
[2024-10-11] MEDS: Brexpiprazole 1 MG TABLET 0.5 MG PO (09:08)
[2024-10-11] MEDS: metFORMIN HCl 500 MG TABLET PO (09:09)
[2024-10-11] MEDS: Sertraline HCL 100 MG TABLET PO (09:09)
[2024-10-11] MEDS: Sertraline HCL 50 MG TABLET PO (09:09)
[2024-10-11] MEDS: Carbidopa/Levodopa 25/100 TABLET 1 TAB PO ×2 (09:09→20:24)
[2024-10-11 09:10] VITALS: BP 117/57
[2024-10-11] MEDS: amLODIPine Besylate 5 MG TABLET PO (09:10)
[2024-10-11] MEDS: Furosemide 20 MG TABLET PO (09:12)
[2024-10-11] MEDS: Sucralfate 1 GM TABLET PO ×4 (09:13→20:23)
--- NOTE | 2024-10-11 10:20 | P.EN_ITS ---
Event Note Date of Service: 10/11/24 Time Spent With Patient Time: Total time managing care of this patient today ____ minutes. Medications Medications Medications: Current Medications Amlodipine Besylate (Amlodipine Besylate 5 Mg Tablet) 5 mg PO DAILY [facility]; Protocol Last Admin: 10/11/24 09:10 Dose: 5 mg Brexpiprazole (Brexpiprazole 1 Mg Tablet) 0.5 mg PO DAILY [facility] Last Admin: 10/11/24 09:08 Dose: 0.5 mg Carbidopa/Levodopa (Carbidopa/Levodopa 25/100 Tablet) 1 tab PO BID [facility] Last Admin: 10/11/24 09:09 Dose: 1 tab Cyanocobalamin (Cyanocobalamin (Vitamin B-12) 500 Mcg Tablet) 500 mcg PO DAILY [facility] Furosemide (Furosemide 20 Mg Tablet) 20 mg PO DAILY [facility]; Protocol Last Admin: 10/11/24 09:12 Dose: 20 mg Lidocaine (Lidocaine 4 % Patch Adh..Patch) 2 patch TRANSDERMA DAILY [facility]; Protocol Last Admin: 10/11/24 09:05 Dose: 2 patch Lorazepam (Lorazepam 1 Mg Tablet) 1 mg PO BEDTIME PRN PRN Reason: sleep Last Admin: 10/10/24 20:58 Dose: 1 mg Metformin HCl (Metformin Hcl 500 Mg Tablet) 500 mg PO DAILY [facility] Last Admin: 10/11/24 09:09 Dose: 500 mg Nystatin (Nystatin Powder 15 Gm Bottle) 1 appl TOPICAL TID [facility]; Protocol Last Admin: 10/11/24 09:16 Dose: Not Given Omeprazole (Omeprazole 40 Mg Capsule.Dr) 40 mg PO DAILY@0630 [facility] Last Admin: 10/11/24 05:57 Dose: 40 mg Pravastatin Sodium (Pravastatin Sodium 20 Mg Tablet) 20 mg PO BEDTIME [facility] Last Admin: 10/10/24 20:55 Dose: 20 mg Sertraline HCl (Sertraline Hcl 50 Mg Tablet) 50 mg PO DAILY [facility] Last Admin: 10/11/24 09:09 Dose: 50 mg Sertraline HCl (Sertraline Hcl 100 Mg Tablet) 100 mg PO DAILY [facility] Last Admin: 10/11/24 09:09 Dose: 100 mg Sucralfate (Sucralfate 1 Gm Tablet) 1 gm PO QID [facility] Last Admin: 10/11/24 09:13 Dose: 1 gm Trazodone HCl (Trazodone Hcl 50 Mg Tablet) 50 mg PO BEDTIME PRN PRN Reason: Insomnia
--- NOTE | 2024-10-11 17:15 | HO.PSYCHPN ---
Subjective Subjective Date of Service: 10/11/24 Reason For Visit: paranoia Subjective Notes: Conditional Voluntary Interim History: Pt slept through the night. Pt reports she feels better. She reports her mood is best it has been in several years. She denies SI/HI. less paranoid about staff at [facility] but still thinks this may be happening. Family meeting held to discuss d/c, med changes, d/c 10/12. Pt upset prior to meeting as she thought we were talking about her without her present. Medication Compliance: Yes Review of Systems Review of Systems Denies today Yes all other systems are reviewed and are negative Mental Status Exam Mental Status Exam Narrative: Appearance: wearing hospital gown, fair hygiene, in NAD Behavior: cooperative, friendly Psychomotor: no resting tremors noted. no agitation or retardation noted Speech: clear, normal rate/rhythm/volume, spontaneous TP: tangential, but no loose associations TC: worried about people entering her room, but hoping to be able to return to [facility] Mood: better Affect: congruent, brighter SI: denies HI: denies VH/AH: none Delusions: paranoid delusions. Insight/judgment: poor x 2. Memory/cog: alert, oriented x 4. MOCA on 10/04/2024 scored 16/30 (with impairments in visuo spatial, recall,language fluency). Her orientation is intact. She was able to complete clock draw test. naming and orientation are intact. ACL is 3.6 showing more severe cognitive impairment. Diagnostics Vital Signs (24Hr): Vital Signs - 24 hr 10/10/24 20:00 10/10/24 22:40 10/11/24 08:00 Temperature 97.6 F 36.7 F L Pulse Rate 63 71 Respiratory Rate 18 18 13 Blood Pressure 113/60 116/57 L Pulse Oximetry 97 97 Oxygen Delivery Method Room Air Room Air 10/11/24 09:10 Temperature Pulse Rate Respiratory Rate Blood Pressure 117/57 L Pulse Oximetry Oxygen Delivery Method BMI result Body Mass Index 36.4 Labs 10/01/24 16:10 10/09/24 09:15 Medications Medications Current Medications Acetaminophen (Acetaminophen 325 Mg Tablet) 650 mg PO Q6H PRN PRN Reason: Headache/Pain, Scale 1-10 Last Admin: 10/10/24 06:14 Dose: 650 mg Al Hydroxide/Mg Hydroxide (Magnesium Hydrox/Alum Hydrox 30 Ml Oral.Susp) 30 ml PO Q6H PRN PRN Reason: Heartburn/Nausea Amlodipine Besylate (Amlodipine Besylate 5 Mg Tablet) 5 mg PO DAILY [facility]; Protocol Last Admin: 10/11/24 09:10 Dose: 5 mg Brexpiprazole (Brexpiprazole 1 Mg Tablet) 0.5 mg PO DAILY [facility] Last Admin: 10/11/24 09:08 Dose: 0.5 mg Carbidopa/Levodopa (Carbidopa/Levodopa 25/100 Tablet) 1 tab PO BID [facility] Last Admin: 10/11/24 09:09 Dose: 1 tab Cyanocobalamin (Cyanocobalamin (Vitamin B-12) 1,000 Mcg/Ml Vial) 1,000 mcg IM Q7D [facility] Stop: 10/25/24 17:16 Last Admin: 10/04/24 20:55 Dose: 1,000 mcg Cyanocobalamin (Cyanocobalamin (Vitamin B-12) 500 Mcg Tablet) 500 mcg PO DAILY [facility] Furosemide (Furosemide 20 Mg Tablet) 20 mg PO DAILY [facility]; Protocol Last Admin: 10/11/24 09:12 Dose: 20 mg Lidocaine (Lidocaine 4 % Patch Adh..Patch) 2 patch TRANSDERMA DAILY [facility]; Protocol Last Admin: 10/11/24 09:05 Dose: 2 patch Lorazepam (Lorazepam 1 Mg Tablet) 1 mg PO BEDTIME PRN PRN Reason: sleep Last Admin: 10/10/24 20:58 Dose: 1 mg Magnesium Hydroxide (Milk Of Magnesia 30 Ml Oral.Susp) 30 ml PO DAILY PRN PRN Reason: Constipation Metformin HCl (Metformin Hcl 500 Mg Tablet) 500 mg PO DAILY [facility] Last Admin: 10/11/24 09:09 Dose: 500 mg Nystatin (Nystatin Powder 15 Gm Bottle) 1 appl TOPICAL TID [facility]; Protocol Last Admin: 10/11/24 15:45 Dose: Not Given Omeprazole (Omeprazole 40 Mg Capsule.Dr) 40 mg PO DAILY@30 [facility] Last Admin: 10/11/24 05:57 Dose: 40 mg Pravastatin Sodium (Pravastatin Sodium 20 Mg Tablet) 20 mg PO BEDTIME [facility] Last Admin: 10/10/24 20:55 Dose: 20 mg Sertraline HCl (Sertraline Hcl 50 Mg Tablet) 50 mg PO DAILY [facility] Last Admin: 10/11/24 09:09 Dose: 50 mg Sertraline HCl (Sertraline Hcl 100 Mg Tablet) 100 mg PO DAILY [facility] Last Admin: 10/11/24 09:09 Dose: 100 mg Sucralfate (Sucralfate 1 Gm Tablet) 1 gm PO QID [facility] Last Admin: 10/11/24 13:31 Dose: 1 gm Trazodone HCl (Trazodone Hcl 50 Mg Tablet) 50 mg PO BEDTIME PRN PRN Reason: Insomnia Allergies Allergies Allergy/AdvReac Type Severity Reaction Status Date / Time No Known Allergies Allergy Verified 10/01/24 15:21 Assessment & Plan Assessment & Plan (1) Lewy body dementia with psychotic disturbance: Status: Acute Code(s): G31.83 - Neurocognitive disorder with Lewy bodies; F02.82 - Dementia in other diseases classified elsewhere, unspecified severity, with psychotic disturbance Plan Mrs. Holland is a 79 year-old woman with hx of Lewy BOdy Dementia who was brought [place] [facility] due to increase paranoid delusions of people entering her room and stealing from her. It appears this has been going on for the past year but with increase intensity now. She is on number of medication with dopaminergic properties which can contribute or exacerbate delusions and/or psychosis including wellbutrin and sinemmet. We discussed inpatient psych admission for management of paranoid delusions given that in context of Lewy Body Dementia individuals tend to be very sensity to psychotropic medications, especially use of antipsychotic. 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 Pt is in agreement to inpt admission. Left VM to daughter Marcie to discuss dispo and medication changes. Will contact OP psych provider also to coordinate care. PLAN 10/08- continue current medications. coordination of care and collateral information obtained from OP provider Janel Jones. 10/09 continue tx. family meeting schedule this week to plan d/c. 10/10 continue tx. 10/11 continue tx. Reason for continued inpatient stay Substantial Risk for: inability to function Time Spent With Patient Time: Total time managing care of this patient today ____ minutes.
[2024-10-11] MEDS: Cyanocobalamin (Vitamin B-12) 1,000 MCG/ML VIAL 1000 MCG IM (17:31)
[2024-10-11 20:00] VITALS: BP 90/51; PULSE 78; RESP 18; TEMP 36.2; O2SAT 97
[2024-10-11] MEDS: Pravastatin Sodium 20 MG TABLET PO (20:24)
[2024-10-11] MEDS: LORazepam 1 MG TABLET PO (20:24)
[2024-10-11 22:47] VITALS: RESP 18
[2024-10-12] MEDS: Omeprazole 40 MG CAPSULE.DR PO (05:58)
[2024-10-12] MEDS: amLODIPine Besylate 5 MG TABLET PO (08:33)
[2024-10-12] MEDS: Brexpiprazole 1 MG TABLET 0.5 MG PO (08:33)
[2024-10-12] MEDS: metFORMIN HCl 500 MG TABLET PO (08:33)
[2024-10-12] MEDS: Furosemide 20 MG TABLET PO (08:34)
[2024-10-12] MEDS: Carbidopa/Levodopa 25/100 TABLET 1 TAB PO (08:34)
[2024-10-12] MEDS: Cyanocobalamin (Vitamin B-12) 500 MCG TABLET PO (08:34)
[2024-10-12] MEDS: Sertraline HCL 100 MG TABLET PO (08:34)
[2024-10-12] MEDS: Sertraline HCL 50 MG TABLET PO (08:34)
[2024-10-12] MEDS: Sucralfate 1 GM TABLET PO (08:34)
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
[2024-10-12] MEDS: Lidocaine 4 % Patch ADH..PATCH 2 PATCH TRANSDERMA (11:54)
[2024-10-12] MEDS: Nystatin Powder 15 GM BOTTLE 1 APPL TOPICAL (11:55)
== END 2024-10-12 11:37 | DRG 57 ==
LOC: HO.ED 10-03 13:58 → HO.PGERI 10-03 14:01
PROVIDERS: Admitting Provider Social Worker; Emergency Provider Internal Medicine; PCP Family Medicine; Visit Provider Social Worker
DX: G31.83 Neurocognitive disorder with Lewy bodies (principal); F02.82 Dementia in other diseases classified elsewhere, unspecified severity, with psychotic disturbance; Z79.899 Other long term (current) drug therapy
CPT/HCPCS: 36415; 80053; 80061; 80307; 81001; 82565; 82607; 82746; 83036; 83735; 84439; 84443; 85025; 93005; 94660; 99285; J3420; S9485

== ENCOUNTER → 2024-10-01 15:51 | Outpatient (BNV) | payer MEDICARE, SELFPAY | PROVIDERS: Emergency Provider Internal Medicine; PCP Family Medicine; Visit Provider Social Worker | DX: G31.83 Neurocognitive disorder with Lewy bodies (principal); F02.82 Dementia in other diseases classified elsewhere, unspecified severity, with psychotic disturbance | CPT/HCPCS: 90792; 99231; 99232; 99239; 99499 ==

== ENCOUNTER → 2024-10-02 08:15 | Outpatient (BNV) | payer MEDICARE, SELFPAY | PROVIDERS: Admitting Provider Social Worker; Emergency Provider Internal Medicine; PCP Family Medicine; Visit Provider Internal Medicine Cardiovascular Disease | DX: I45.10 Unspecified right bundle-branch block (principal) | CPT/HCPCS: 93010 ==

== ENCOUNTER 2024-10-13 09:21 | Emergency (ER) | payer MEDICARE, MEDICAID, SELFPAY ==
--- NOTE | 2024-10-13 09:25 | ED_ITS ---
HPI - General Adult General Chief complaint: Psychiatric Symptoms Stated complaint: PSYCH Time Seen by Provider: 10/13/24 09:24 Source: patient and EMS Mode of arrival: EMS Limitations: no limitations History of Present Illness ED Provider: Surjit Lynn PA-C HPI narrative: Patient is a 79 year old assigned female at with a history of lewy body dementia with psychotic disturbance presenting to the emergency department today with paranoia. Patient states that her assisted living staff is stealing from her. Staff states that the patient was recently admitted to our geriatric psych iatric unit and her paranoia has continued so they want her re-evaluated. Patient denies any dizziness, lightheadedness, abdominal pain, nausea, vomiting, fever, chills, blurry vision, double vision, loss of vision, chest pain, difficulty breathing, shortness of breath, back pain, night sweats, pain with urination, increased urinary frequency, increased urinary urgency, blood in her urine or stool, syncope or a near syncopal episode, recent trauma or falls, bowel incontinence, bladder incontinence, or any other complaints at this time. Relieving factors: none Exacerbating factors: none Associated symptoms: denies other symptoms Treatments prior to arrival: none Related Data Home Medications ?Medication ?Instructions ?Recorded ?Confirmed furosemide 20 mg tablet 20 mg PO DAILY 10/01/2409/16 sertraline 100 mg tablet 100 mg PO DAILY 10/01/24 sertraline 50 mg tablet 50 mg PO DAILY 10/01/2409/16 Previous Rx's ?Medication ?Instructions ?Recorded amlodipine 5 mg tablet 5 mg PO DAILY #30 tabs 10/11 carbidopa 25 mg-levodopa 100 mg 1 tab PO BID #60 tabs 10/11/24 tablet cyanocobalamin (vitamin B-12) 500 500 mcg PO DAILY #30 tabs 10/11/24 mcg tablet furosemide 20 mg tablet 20 mg PO DAILY #30 tabs 09/17 10/10 lidocaine 4 % topical patch 2 patch transdermal DAILY #30 ea 10/11/24 (Lidocaine Pain Relief) lorazepam 1 mg tablet 1 mg PO DAILY PRN Anxiety #3 0 tabs 10/11/24 metformin 500 mg tablet 500 mg PO DAILY #30 tabs nystatin 100,000 unit/gram topical 1 appl topical TID #15 grams 10/11/24 cream omeprazole 40 mg capsule,delayed 40 mg PO DAILY@0630 # 30 caps 10/11/24 release pravastatin 20 mg tablet 20 mg PO BEDTIME #30 tabs sertraline 100 mg tablet 100 mg PO DAILY #30 tabs sertraline 50 mg tablet 50 mg PO DAILY #30 tabs 09/17 10/10 sucralfate 1 gram tablet 1 g PO QID #90 tabs 10/11/24 brexpiprazole 1 mg tablet 0.5 mg (1/2 x 1 mg) PO DAILY #30 10/12/24 tabs Allergies Allergy/AdvReac Type Severity Reaction Status Date / Time No Known Allergies Allergy Verified 10/13/24 09:43 Review of Systems Constitutional: Constitutional: Reports no additional constitutional complaints, Denies chills, Denies fever(s) and Denies night sweats Eyes: Eyes: Reports no additional eye complaints, Denies blurry vision, Denies change in vision, Denies diplopia, Denies eye discharge, Denies loss of vision and Denies eye pain ENT: Denies dizziness Cardiovascular: Cardiovascular: Reports no additional cardiovascular complaints, Denies chest pain, Denies lightheadedness, Denies Loss of Consciousness and Denies dyspnea Respiratory: Respiratory: Reports no additional respiratory complaints and Denies dyspnea Gastrointestinal: Gastrointestinal: Reports no additional gastrointestinal complaints, Denies abdominal pain, Denies melena, Denies hematochezia, Denies change in bowel habits and Denies change in stool character Genitourinary: Genitourinary: Denies hematuria, Denies urinary frequency, Denies dysuria, Denies urinary incontinence, Denies urinary hesitancy and Denies urinary urgency Musculoskeletal: Musculoskeletal: Reports no additional musculoskeletal complaints, Denies numbness and Denies tingling Neurologic: Denies dizziness, Denies loss of vision, Denies numbness and Denies tingling Psychiatric: Psychiatric: Reports paranoia, Denies homicidal ideation and Denies suicidal ideation Endocrine: Endocrine: Reports no additional endocrine complaints Hematologic/Lymphatic: Hematologic/Lymphatic: Reports no additional hematologic/lymphatic complaints Allergic/Immunologic: Allergic/Immunologic: Reports no additional allergic/immunologic complaints PMFSH Past Medical History Attestation statement: The following information was validated with the patient. Source: old records reviewed and nursing notes reviewed Social History Social History Household Members: None Housing: Assisted Living Facility Do you presently have visiting nurse or other home services: No Comment: Patient is on 5 min checks Patient Tobacco Use Status: Never used Tobacco Do you have a plan to hurt others: No Plan service: No Sexual orientation: Straight/Heterosexual Physical Exam ED Vital Signs: Vital Signs - 24 hr 10/13/24 09:40 Temperature 97.1 F Pulse Rate 78 Respiratory Rate 16 Blood Pressure 149/74 H Pulse Oximetry 97 Oxygen Delivery Method Room Air BMI result Body Mass Index 41.2 Const General: cooperative, no acute distress, alert and awake Nutritional Appearance: well nourished Orientation/consciousness: patient oriented x3 HENMT Head: Yes normal to inspection and Yes atraumatic Ears: hearing grossly normal bilaterally and external ears normal General nose exam: Normal external nose present, no nasal discharge noted and no epistaxis Face and sinus: Yes normal facial exam, No abrasion and No laceration Mouth: Normal oral and palatal mucosa present, no drooling and no muffled voice Eyes General: appearance normal, both eyes and all related structures Periorbital: periorbital findings normal Eyelids: Yes eyelids normal Conjunctivae: conjunctivae normal Pupils: Equal, round and reactive pupils present EOM: EOMs intact bilaterally Neck Neck: Yes normal visual inspection, Yes full ROM and Yes no lymphadenopathy Resp Effort & Inspection: normal respiratory effort and able to speak in complete sentences Neuro General: patient oriented x3, moves all extremities and CN's II-XI intact bilaterally Cranial nerves: Yes Equal, round and reactive pupils present Extrem General: Yes normal to inspection, Yes full ROM and Yes capillary refill normal Psych Appearance: grossly normal Mental Status: mental status grossly normal Affect: normal affect Medical Decision Making Medical Decision Making MDM Narrative: Patient is a 79 year old assigned female at with a history of lewy body dementia with psychotic disturbance presenting to the emergency department today with paranoia. Patient's physical exam was as noted in the physical exam portion of this note. Patient's urine showed no acute process. Patient's EKG was unremarkable. I explained my physical exam findings as well as all test results to the patient. I answered all questions asked by the patient. Nursing staff from the [facility] called and spoke with me stating they spoke to the MECHANICAL EQUIPMENT SALES ENGINEER of [facility] and have agreed to a plan in place and have requested she be discharged back to their facility. Patient is appropriate for discharge. I stressed the importance of the patient taking his medication as directed (either prescribed or as the over the counter packaging recommends). I stressed the importance of the patient following up with her primary care and psychiatric providers. I stressed the importance of the patient returning to the emergency department immediately if her symptoms were to worsen or if she were to develop any dizziness, shortness of breath, difficulty breathing, chest pain, blurry vision, loss of vision, nausea, vomiting, abdominal pain, fever, chills, back pain, or any other complaints. Patient verbalized agreement and understanding with this treatment plan and discharge. Differential Diagnosis Differential Diagnoses: The differential diagnosis associated with the presentation includes Dementia Paranoia Admission/Observation Consideration of admission/observation: Escalation of care including admissi on/observation considered Patient would have been admitted to the hospital had her work up had any findings where hospital admission was appropriate and her clinical presentation warranted hospital admission. Lab Data [facility] Lab Attestation statement: I reviewed the patient's lab results. My interpretation of these results are in the [facility] Rationale portion of this note. Labs: Lab Results 10/13/24 10/13/24 Range/Units 09:49 09:52 Urine Color Yellow Urine Appearance Clear Urine pH 7.5 (5.0-9.0) Ur Specific Hopkins 1.010 (1.005-1.025) Urine Protein Negative (Neg-Trace) mg/dL Urine Glucose (UA) Negative (Negative) mg/dL Urine Ketones Negative (Negative) mg/dL Urine Blood Negative (Negative) Urine Nitrite Negative (Negative) Ur Leukocyte Esterase Negative (Negative) Urine RBC 0-2 (0-2) /HPF Urine WBC 0-5 (0-5) /HPF Ur Squamous Epith Cells 0-2 (0-2) /HPF Urine Bacteria 4+ (None Seen) Hyaline Casts 0-2 (0-2) /LPF Urine Opiates Screen Not Detected (Not Detect) Ur Buprenorphine Scrn Not Detected (Not Detect) ng/mL Ur Oxycodone Screen Not Detected (Not Detect) ng/mL Urine Methadone Screen Not Detected (Not Detect) ng/mL Urine Fentanyl Screen Not Detected (Not Detect) Ur Barbiturates Screen Not Detected (Not Detect) Ur Phencyclidine Scrn Not Detected (Not Detect) Ur Amphetamines Screen Not Detected (Not Detect) U Benzodiazepines Scrn Not Detected (Not Detect) Urine Cocaine Screen Not Detected (Not Detect) U Marijuana (THC) Screen Not Detected (Not Detect) Independent Interpretation I performed an independent interpretation of an: EKG Interpretation: I independently interpreted this EKG and am in agreement with the below findings: Vent. Rate: 75 BPM Atrial Rate: 75 BPM P-R Int: 222 ms QRS Dur: 100 ms QT Int: 390 ms P-R-T Axes: 54 66 26 degrees QTcB Int: 435 ms Sinus rhythm with 1st degree A-V block with occasional Premature ventricularcomplexes Low voltage QRS Incomplete right bundle branch block When compared with ECG of 02-Oct-2024 08:15, Fusion complexes are no longer Present Premature ventricular complexes are now Present DD/ 1003 Independent Historian Clinical information obtained from an independent historian. History obtained from or confirmed by: EMS (EMS provided additional history and confirmed the history provided by the patient.) and Other ([facility] staff provided additional history and confirmed the history provided by the patient.) Discharge Plan Discharge Clinical Impression: Lewy body dementia with psychotic disturbance Patient Disposition: Home, Self-Care Additional Instructions: You were seen in our Emergency Department today for a concern regarding your mental / behavioral behavioral health. It is important after this visit today that you follow up with either your mental / behavioral health or primary care provider within 7 days (from today).? Return for any worsening symptoms or concerns such as thoughts of harming yourself or others. Please call 911 immediately if you feel your mental health is worsening.? National Suicide and Crisis Lifeline: Available 24 hours a day, 7 days a week, 365 days a year Dial 988 with any telephone to speak to someone immediately [facility] (Mental / Behavioral health therapist: [address], [place] [id number] [facility]: [address] [place] [address] Open from 10am - 12pm (walk ins welcome) [facility] Crisis Services: [address] [place] [address] Walk in hours from 10am - 12pm Behavioral health Network: [address], [place] [phone] AND [address] [place] [phone] Tuesday through Tuesday 8am - 8pm Tuesday and Tuesday 9am - 5pm Follow up with your primary care provider and your psychiatric providers. Return to the emergency department immediately if your symptoms worsen or if you develop any numbness, tingling, dizziness, shortness of breath, difficulty breathing, chest pain, blurry vision, loss of vision, nausea, vomiting, abdominal pain, fever, chills, back pain, or any other complaints. Please see the information below about our Patient Portal. If you are not yet enrolled in the [facility] Patient Portal, you will receive an enrollment email invitation following your visit to any [facility] setting. You may also self-enroll in the Patient Portal by visiting our website: [email or web address] The following information is required to access the Patient Portal: - Your [facility] Medical Record Number - Your personal home email address (must match what is in your electronic medical record, Registration staff can assist with this) - Name - Date of Capabilities of the Patient Portal: - Message some providers - View upcoming appointments - Access your health summary, medical history, and visit history - View current conditions and allergies - View procedure and lab results - View your medications, including guidelines, side effects, and precautions - Complete pre-appointment questionnaires requested by your provider - Ready summary reports of your office visits and procedures To access the Patient Portal Mobile Lei, follow these directions: - Search [employer] in the Lei Store or [employer] Store - Download the Lei - Search for [facility] - Enter your login/password Prescriptions: No Action sertraline 100 mg tablet 100 mg PO DAILY furosemide 20 mg tablet 20 mg PO DAILY sertraline 50 mg tablet 50 mg PO DAILY metformin 500 mg Tablet 500 mg PO DAILY Qty: 30 0RF lidocaine [Lidocaine Pain Relief] 4 % Adhesive Patch,Medicated 2 patch transdermal DAILY Qty: 30 0RF Protocol: Apply to: Apply to: Right hip and Right Outer Mid Thigh sucralfate 1 gram Tablet 1 g PO QID Qty: 90 0RF sertraline 100 mg Tablet 100 mg PO DAILY Qty: 30 0RF amlodipine 5 mg Tablet 5 mg PO DAILY Qty: 30 0RF Protocol: Hold for SBP< HOLD for SBP < : 90 omeprazole 40 mg Capsule,Delayed Release(Dr/Ec) 40 mg PO DAILY@0630 Qty: 30 0RF pravastatin 20 mg Tablet 20 mg PO BEDTIME Qty: 30 0RF furosemide 20 mg Tablet 20 mg PO DAILY Qty: 30 0RF Protocol: Hold for SBP< HOLD for SBP < : 90 carbidopa-levodopa 25-100 mg Tablet 1 tab PO BID Qty: 60 0RF sertraline 50 mg Tablet 50 mg PO DAILY Qty: 30 0RF nystatin 100,000 unit/gram cream 1 appl topical TID Qty: 15 0RF lorazepam 1 mg tablet 1 mg PO DAILY PRN (Reason: Anxiety) Qty: 30 0RF cyanocobalamin (vitamin B-12) 500 mcg Tablet 500 mcg PO DAILY Qty: 30 0RF brexpiprazole 1 mg Tablet 0.5 mg PO DAILY Qty: 30 0RF Referrals: Kuldeep Castro DO [Primary Care Provider, Internal Medicine] Print Language: Syriac
[2024-10-13 09:40] VITALS: BP 146/71; BP 149/74; PULSE 78; PULSE 79; RESP 16; TEMP 36.2; O2SAT 100; O2SAT 97; BMI 41.2
--- NOTE | 2024-10-13 09:58 | ECG_ITS ---
Test Reason : DFT Blood Pressure : */* mmHG Vent. Rate : 75 BPM Atrial Rate : 75 BPM P-R Int : 222 ms QRS Dur : 100 ms QT Int : 390 ms P-R-T Axes : 54 66 26 degrees QTcB Int : 435 ms Sinus rhythm with 1st degree A-V block with occasional Premature ventricular complexes Low voltage QRS Incomplete right bundle branch block Borderline ECG When compared with ECG of 02-Oct-2024 08:15, Premature ventricular complexes are now Present Referred By: Cesia Lynn Electronically Signed By: FATIMAH HUNTER
[2024-10-13 10:10] LABS: Appearance Urine Clear; Color Urine Yellow; Glucose Urine UA Negative (Negative); Leukocyte Esterase Urine Negative (Negative); Nitrite Urine Negative (Negative); PH 7.5 (5.0-9.0); Urine Blood Negative (Negative); Urine Ketones Negative (Negative); Urine Protein Negative (Neg-Trace)
[2024-10-13 10:13] LABS: Bacteria Urine 4+ (None Seen); Hyaline Casts Urine 0-2 /LPF (0-2); RBC Urine 0-2 /HPF (0-2); Squamous Epithelial Cell Urine 0-2 /HPF (0-2); WBC Urine 0-5 /HPF (0-5)
[2024-10-13 10:30] LABS: Amphetamine Screen Urine Not Detected (Not Detect); Barbiturates, Urine Not Detected (Not Detect); Benzodiazepines Screen Urine Not Detected (Not Detect); Buprenorphine Scr Not Detected (Not Detect); Cannabinoid Screen Urine Not Detected (Not Detect); Cocaine Screen Urine Not Detected (Not Detect); Fentanyl, urine Not Detected (Not Detect); Methadone Screen, Urine Not Detected (Not Detect); Opiate Screen Urine Not Detected (Not Detect); Oxycodone Screen Urine Not Detected (Not Detect); Phencyclidine Screen Urine Not Detected (Not Detect)
--- NOTE | 2024-10-13 11:29 | PC.NURSE ---
Pt has been appropriate, pleasant since arrival to ER; denies SI/HI; staff from assisted living called this RN and stated the pt was ok to return to the [facility] per the FRUIT SORTER of the facility and that family would be coming to the ER to pick pt up; [facility] and is in agreement with DC[facility]ing pt home; pt's belongings returned to her atthis time
[2024-10-13 11:31] VITALS: BP 136/78; PULSE 72; RESP 16; TEMP 36.4; O2SAT 98
== END 2024-10-13 11:33 | disposition home or self-care (01) ==
PROVIDERS: Physician Assistant Medical; Emergency Provider Emergency Medicine; PCP Family Medicine
DX: G31.83 Neurocognitive disorder with Lewy bodies (principal); I44.0 Atrioventricular block, first degree; Z51.81 Encounter for therapeutic drug level monitoring; Z79.899 Other long term (current) drug therapy
CPT/HCPCS: 36415; 80307; 81001; 93005; 99284; 99285

== ENCOUNTER → 2024-10-13 09:58 | Outpatient (BNV) | payer MEDICARE, MEDICAID, SELFPAY | PROVIDERS: Emergency Provider Emergency Medicine; PCP Family Medicine; Visit Provider Internal Medicine | DX: I44.0 Atrioventricular block, first degree (principal); I49.3 Ventricular premature depolarization; I45.19 Other right bundle-branch block | CPT/HCPCS: 93010 ==

== ENCOUNTER 2024-12-11 18:08 | Emergency (ER) | payer MEDICARE, MEDICAID, SELFPAY ==
--- NOTE | ~2024-12-11 | US_ITS ---
CLINICAL HISTORY: Bilateral lower extremity swelling with redness. Venous duplex ultrasound bilateral lower extremity Comparison: None provided Findings: The visualized deep veins are fully compressible with normal Doppler color flow and spectral tracings. No popliteal cyst. IMPRESSION: 1. Negative for bilateral lower extremity deep vein thrombosis. This document has been electronically signed by: Luis Gonzalez MD on 12/11/2024 20:32:03
--- NOTE | ~2024-12-11 | XR_ITS ---
CLINICAL HISTORY: leg swelling redness 2 view left tibia-fibula Comparison: None provided Findings No fractures or dislocations. No joint effusion. Total knee arthroplasty hardware is intact. IMPRESSION: 1. No evidence of acute fracture or dislocation. This document has been electronically signed by: Luis Gonzalez MD on 12/11/2024 19:18:04
--- NOTE | ~2024-12-11 | XR_ITS ---
CLINICAL HISTORY: leg swelling redbess 2 view right tibia-fibula Comparison: None provided Findings No fractures or dislocations. No joint effusion. Total knee arthroplasty with intact hardware and alignment. IMPRESSION: 1. No evidence of acute fracture or dislocation. This document has been electronically signed by: Luis Gonzalez MD on 12/11/2024 19:34:47
[2024-12-11 18:27] VITALS: BP 141/66; PULSE 87; RESP 18; TEMP 36.6; O2SAT 96; BMI 36.6
--- NOTE | 2024-12-11 18:31 | ED.GENADULT ---
HPI - General Adult General Chief complaint: Extremity Problem Stated complaint: swollen in both legs Time Seen by Provider: 12/11/24 23:27 Source: patient and family Mode of arrival: ambulatory Limitations: no limitations History of Present Illness ED Provider: Dr. Megha Ascencio HPI narrative: Patient comes to the emergency room accompanied by family. Patient complaining of several days of lower extremity edema. Patient states that her legs are getting very puffy and heavy. Patient denies significant pain. Patient states that in the past she has been diagnosed with gout in has been given prednisone and colchicine. Patient states that this time her legs do not hurt, they are just swollen. Denies any chest pain so breath. Denies any history of CHF to her knowledge. Related Data Home Medications ?Medication ?Instructions ?Recorded ?Confirmed furosemide 20 mg tablet 20 mg PO DAILY 10/01/24 10/01/24 sertraline 100 mg tablet 100 mg PO DAILY 10/01/24 10/01/24 sertraline 50 mg tablet 50 mg PO DAILY 10/01/24 10/01/24 Previous Rx's ?Medication ?Instructions ?Recorded amlodipine 5 mg tablet 5 mg PO DAILY #30 tabs 10/11/24 carbidopa 25 mg-levodopa 100 mg 1 tab PO BID #60 tabs 10/11/24 tablet cyanocobalamin (vitamin B-12) 500 500 mcg PO DAILY #30 tabs 10/11/24 mcg tablet furosemide 20 mg tablet 20 mg PO DAILY #30 tabs 10/11/24 lidocaine 4 % topical patch 2 patch transdermal DAILY #30 ea 10/11/24 (Lidocaine Pain Relief) lorazepam 1 mg tablet 1 mg PO DAILY PRN Anxiety #30 tabs 10/11/24 metformin 500 mg tablet 500 mg PO DAILY #30 tabs 10/11/24 nystatin 100,000 unit/gram topical 1 appl topical TID #15 grams 10/11/24 cream omeprazole 40 mg capsule,delayed 40 mg PO DAILY@0630 #30 caps 10/11/24 release pravastatin 20 mg tablet 20 mg PO BEDTIME #30 tabs 10/11/24 sertraline 100 mg tablet 100 mg PO DAILY #30 tabs 10/11/24 sertraline 50 mg tablet 50 mg PO DAILY #30 tabs 10/11/24 sucralfate 1 gram tablet 1 g PO QID #90 tabs 10/11/24 brexpiprazole 1 mg tablet 0.5 mg (1/2 x 1 mg) PO DAILY #30 10/12/24 tabs furosemide 20 mg tablet (Lasix) 20 mg PO DAILY #10 tabs 12/11/24 Allergies Allergy/AdvReac Type Severity Reaction Status Date / Time No Known Allergies Allergy Verified 12/11/24 18:29 Review of Systems Review of Systems: Constitutional : No Weight loss, No Fever, No Chills, No Night Sweats, No Fatigue, No Malaise ENT/Mouth : No Hearing loss, No Ear Pain, No Nasal Congestion, No Sinus Pain, No Hoarseness, No sore throat, No Rhinorrhea, No Swallowing Difficulty Eyes: No Eye Pain, No Swelling, No Redness, No Foreign Body, No Discharge, No Vision Changes Cardiovascular : No Chest Pain, No SOB, No Dyspnea on Exertion, No Orthopnea, no palpitations, complaining of lower extremity edema Respiratory : No Cough, No Sputum, No Wheezing, No Smoke Exposure, No Dyspnea Gastrointestinal : No Nausea, No Vomiting, No Diarrhea, No Constipation, No abdominal Pain, No Hematochezia, No Melena Genitourinary : no irregular bleeding, No Dysuria, No Urinary Frequency, No Hematuria, No Urinary Incontinence, No Urgency, No Flank Pain, No Urinary Flow Changes, No Hesitancy Musculoskeletal : No joint pain, No Myalgias, No Joint Swelling Skin : No Skin Lesions, No rash Neuro : No Weakness, No Numbness, No Paresthesias, No Loss of Consciousness, No Dizziness, No Headache Psych : No Anxiety/Panic, No Depression, No SI/HI/AH/VH, No Social Issues, Heme/Lymph: No Bruising, No Bleeding,No Lymphadenopathy Endocrine : No Polyuria, No Polydipsia, No Temperature Intolerance [facility] Past Medical History Medical History (Updated 12/11/24 @ 23:50 by Megha Ascencio MD) Hypertension Lewy body dementia with psychotic disturbance Social History Social History Household Members: None Housing: Assisted Living Facility Do you presently have visiting nurse or other home services: No Comment: Patient is on 5 min checks Patient Tobacco Use Status: Never used Tobacco Advance Directives: No Advance Directives Information Provided: No service: No Sexual orientation: Straight/Heterosexual Physical Exam ED Exam Exam: Appearance: Alert. Oriented X3. No acute distress. Eyes: Pupils equal, round and reactive to light. ENT: Pharynx normal. Neck: Normal inspection. Neck supple. No lymph nodes noted. No crepitus CVS: Normal heart rate and rhythm. Pulses normal. Normal S1 and S2 Respiratory: No respiratory distress. Breath sounds normal. No Wheezing. No rales Abdomen: Soft and nontender. No rigidity. No distention. Skin: Skin warm and dry. Normal skin color. Normal skin turgor. Extremities: Patient has +3 pitting edema bilaterally from the dorsum of the feet all the way up to the shins. No erythema, no pain to palpation Neuro: Oriented X 3. No motor deficit. No sensory deficit. Moving all extremities. No slurred speech. CN 2 through 12 grossly intact Psych: calm, cooperative, normal affect Vital Signs: Vital Signs - 24 hr 12/11/24 22:52 12/12/24 00:00 Temperature 97.7 F 97.7 F Pulse Rate 74 74 Respiratory Rate 18 18 Blood Pressure 148/68 H 148/68 H Pulse Oximetry 98 98 Oxygen Delivery Method Room Air Room Air BMI result Body Mass Index 36.6 Course Course Course Narrative: RME: 79-year-old female presents to ED for bilateral lower extremity swelling with mild redness. Patient was initially formed it was gout but this has not improved. Positive for bilateral leg swelling with redness. EKG leg x-ray, ultrrasound ordered Medical Decision Making Medical Decision Making [facility] Narrative: My interpretation of labs: No significant abnormality patient's hematology or chemistry, normal INR, normal BNP Venous ultrasound is negative for DVTs bilaterally. Discussed with the patient to increase her dose of Lasix. Differential Diagnosis Differential Diagnoses: The differential diagnosis associated with the presentation includes (CHF, venous insufficiency, lower extremity) Admission/Observation Consideration of admission/observation: Escalation of care including admission/observation considered (Given patient's age and symptoms, observation was considered) Lab Data [facility] Lab Attestation statement: I reviewed the patient's lab results. 12/11/24 22:08 12/11/24 18:51 Labs: Lab Results 12/11/24 12/11/24 12/11/24 Range/Units 18:51 22:08 22:37 WBC 8.5 (4.8-10.8) X10*3/uL RBC 4.31 (4.20-5.50) X10*6/uL Hgb 12.6 (12.0-16.0) g/dl Hct 37.7 (37.0-47.0) % MCV 87.5 (80.0-98.0) fL MCH 29.2 (27.0-33.0) pg MCHC 33.4 (31.0-35.0) g/dl RDW 13.6 (11.0-16.0) % Plt Count 203 (160-400) X10*3/uL MPV 8.8 L (9.4-12.3) fL Immature Gran % (Auto) 0.4 (0.0-0.4) % Neut % (Auto) 54.6 (45-73) % Lymph % (Auto) 27.6 (20-40) % Boyle % (Auto) 7.5 (2-11) % Eos % (Auto) 9.2 H (0-4) % Baso % (Auto) 0.7 (0-2) % Lymph # (Auto) 2.3 (1.2-4.9) X10*3/uL Boyle # (Auto) 0.6 (0.1-1.2) X10*3/uL Eos # (Auto) 0.8 H (0.0-0.4) X10*3/uL Baso # (Auto) 0.1 (0.0-0.2) X10*3/uL Abs Immat Gran (auto) 0.03 (0.00-0.03) X10*3/uL Absolute Neuts (auto) 4.6 (2.0-8.3) x10*3/uL Absolute Nucleated RBC 0.000 (0.0-0.012) X10*3/uL Nucleated RBC % (auto) 0.0 (0.0-0.2) /100WBC ESR 24 H (0-20) MM/HR PT 11.4 (10.9-12.4) SEC INR 1.0 (0.9-1.1) APTT 28.1 (26.7-34.1) SEC Sodium 140 (135-145) mmol/L Potassium 3.7 (3.3-5.1) mmol/L Chloride 103 (96-108) mmol/L Carbon Dioxide 26 (22-29) mmol/L Anion Gap 15 (12-20) BUN 23 H (9-16) mg/dL Creatinine 1.23 (0.5-1.4) mg/dL Estim Creat Clear Calc 43.4 Estimated GFR 42 Random Glucose 138 H (60-115) mg/dL Uric Acid 7.3 H (2.4-5.7) mg/dL Calcium 9.6 (8.4-10.2) mg/dL Total Bilirubin 0.2 (0.0-1.0) mg/dL AST 20 (5-31) U/L ALT 9 (0-31) U/L Alkaline Phosphatase 103 (39-117) U/L C-Reactive Protein 0.53 H (< or = 0.50) mg/dL B-Natriuretic Peptide 21 (<100) pg/mL Total Protein 7.3 (6.5-8.0) g/dL Albumin 4.4 (3.5-5.0) g/dL Independent Historian Clinical information obtained from an independent historian. History obtained from or confirmed by: Other (Patient's family) Critical Care Time Critical Care Time Critical Care Time: Yes Total Critical Care Time: 35 Attestation: I have personally provided critical care time. Time includes review of lab data, radiology results, discussion with consultants, and monitoring for potential decompensation. Intervention performed as documented. Discharge Plan Discharge Clinical Impression: Lower extremity edema Patient Disposition: Home, Self-Care Instructions: Leg Edema (ED) Additional Instructions: Prior to sleep with your legs elevated, Please follow-up with your primary care physician tomorrow. If you have any worsening or new symptoms, please return to the emergency room or call 911 Prescriptions: New furosemide [Lasix] 20 mg tablet 20 mg PO DAILY Qty: 10 0RF Rx Instructions: In total, take furosemide 40 mg daily 7-10 days, depending on your leg swelling No Action sertraline 100 mg tablet 100 mg PO DAILY furosemide 20 mg tablet 20 mg PO DAILY sertraline 50 mg tablet 50 mg PO DAILY metformin 500 mg Tablet 500 mg PO DAILY Qty: 30 0RF lidocaine [Lidocaine Pain Relief] 4 % Adhesive Patch,Medicated 2 patch transdermal DAILY Qty: 30 0RF Protocol: Apply to: Apply to: Right hip and Right Outer Mid Thigh sucralfate 1 gram Tablet 1 g PO QID Qty: 90 0RF sertraline 100 mg Tablet 100 mg PO DAILY Qty: 30 0RF amlodipine 5 mg Tablet 5 mg PO DAILY Qty: 30 0RF Protocol: Hold for SBP< HOLD for SBP < : 90 omeprazole 40 mg Capsule,Delayed Release(Dr/Ec) 40 mg PO DAILY@0630 Qty: 30 0RF pravastatin 20 mg Tablet 20 mg PO BEDTIME Qty: 30 0RF furosemide 20 mg Tablet 20 mg PO DAILY Qty: 30 0RF Protocol: Hold for SBP< HOLD for SBP < : 90 carbidopa-levodopa 25-100 mg Tablet 1 tab PO BID Qty: 60 0RF sertraline 50 mg Tablet 50 mg PO DAILY Qty: 30 0RF nystatin 100,000 unit/gram cream 1 appl topical TID Qty: 15 0RF lorazepam 1 mg tablet 1 mg PO DAILY PRN (Reason: Anxiety) Qty: 30 0RF cyanocobalamin (vitamin B-12) 500 mcg Tablet 500 mcg PO DAILY Qty: 30 0RF brexpiprazole 1 mg Tablet 0.5 mg PO DAILY Qty: 30 0RF Interventions: ED Discharge Assessment Last Done: 12/12/24 00:00 Discharge Date/Time: 12/12/24 00:01 Print Language: Emirati
[2024-12-11 19:11] LABS: Alanine Aminotransferase 9 U/L (0-31); Albumin Level 4.4 g/dL (3.5-5.0); Alkaline Phosphatase 103 U/L (39-117); Anion Gap 15 (12-20); Aspartate Amino Transferase 20 U/L (5-31); Blood Urea Nitrogen 23 mg/dL (9-16); Calcium 9.6 mg/dL (8.4-10.2); Carbon Dioxide 26 mmol/L (22-29); Chloride 103 mmol/L (96-108); Creatinine Clr Calc Pharmacy 43.4; Estimated Glomerular Filt Rate 42; Potassium 3.7 mmol/L (3.3-5.1); Sodium 140 mmol/L (135-145); Total Protein 7.3 g/dL (6.5-8.0); Uric Acid 7.3 mg/dL (2.4-5.7)
--- OUTSIDE RECORDS SUMMARY | 2024-12-11 21:34 | XMS_ITS | Clinical Summary ---
Author Organization [facility] ity Address [id number] [place] [phone] Care Team Providers Care [employer] Equipment Operator Name Role Phone Tara Montes De Oca MD Primary Care Provider [phone] Social History Tobacco Use Types Packs/Day Years [...] nts (1 - 1-dose 75+ series) 2020 Falls Risk Assessment 03/28/2022 Hepatitis C Screening 03/28/2022 Osteoporosis Screening (Bone Density Screening) 03/28/2022 Social Influencers of Health Screening 03/28/2022 COVID-19 Vaccine ( - 2023-2 5 season) 2023 Depression Screening 04/18/2024 Influenza Vaccine (#1) 2024 HIB Vaccines Aged Out No longer [...] Documents on File Type Date Recorded 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
--- OUTSIDE RECORDS SUMMARY | 2024-12-11 21:34 | XMS_ITS | Clinical Summary ---
Author Organization [facility] Address [address] [place] [address] Care Team Providers Care Transportation Museum Helper Name Role Phone Shalini Contreras MD Primary Care Provider + Allergies No known active allergies Medications Medication Sig Dispensed Refills Start Date End Date Status glipiZIDE (GLUCOTROL) tablet 5 mg TAKE 1 TABLET DAILY. 3 12/03/2016 Active Magnesium Oxide 400 (241.3 MG) MG TABS tablet TAKE 1 TABLET DAILY. 0 12/14/2016 Active omega-3 acid ethyl esters (LOVAZA) capsule 1 g TAKE ONE CAPSULE BY MOUTH EVERY MORNING AND 2 CAPSULES EVERY EVENING 3 12/21/2016 Active JANUMET 50-1000 MG per tablet Take 1 tablet by mouth 2 (two) times a day with meals. 3 12/21/2016 Active silver sulfadiazine (SILVADENE, SSD) 1 % cream APPLY TO AFFECTED AREA(S) ONCE DAILY DIRECTED. 0 12/14/2016 Active sertraline (ZOLOFT) 100 MG tablet 0 02/09/2017 Active pravastatin (PRAVACHOL) tablet 40 mg TAKE 1 TABLET BY MOUTH AT BEDTIME 6 01/26/2017 Active LORazepam (ATIVAN) 1 MG tablet 0 02/14/2017 Active warfarin (COUMADIN) 1 MG tablet Take 4 tabs daily or as directed by physician 50 tablet 0 02/17/2017 Active Family History Medical History Relation Name Comments Diabetes Maternal Grandmother Relation Name Status Comments Maternal Grandmother Social History Tobacco Use Types Packs/Day Years Used Date Smoking Tobacco: Never Assessed Sex and Gender Information Value Date Recorded Sex Assigned at Not on file Gender Identity Not on file Sexual Orientation Not on file Job Start Date Occupation Industry Not on file Not on file Not on file Last Filed Vital Signs Vital Sign Reading Time Taken Comments Blood Pressure - - Pulse - - Temperature - - Respiratory Rate - - Oxygen Saturation - - Inhaled Oxygen Concentration - - Weight 115.2 kg (254 lb) 01/11/2017 1:08 PM EDT Height 162.6 cm (5' 4 ) 01/11/2017 1:08 PM EDT Body Mass Index 43.6 01/11/2017 1:08 PM EDT Plan of Treatment Health Maintenance Due Date Last Done Comments Hepatitis C Screening 1945 COVID-19 Vaccine (#1) 02/24/1946 Depression Screening 1957 Preventative Health Evaluation 08/25/1963 DTap / Tdap / Td (1 - Tdap) 1964 Shingrix-Zoster Vaccine (1 of 2) 08/25/1995 Fall Risk Assessment 2010 Osteoporosis Screening (DEXA Scan) 2010 Pneumococcal Vaccine (1 of 1 - PCV) 2010 RSV Adult > 60+ Yrs or Pregn ant (1 - 1-dose 75+ series) 2020 Influenza Vaccine (#1) 2024 Hepatitis B Vaccines Aged Out No long er eligible based on patient's age to complete this topic RSV Ped < 20 months Aged Out No longe r eligible based on patient's age to complete this topic Care Teams Transportation Museum Helper Relationship Specialty Start Date End Date Shalini Contreras MD PCP - General Pediatric Acute Care Unit Nurse 12/13/16
[2024-12-11 22:12] LABS: MANUAL DIFF FLAG NO
[2024-12-11 22:13] LABS: Hematocrit 37.7 % (37.0-47.0); Hemoglobin 12.6 g/dl (12.0-16.0); Imm Gran Abs Auto 0.03 X10*3/uL (0.00-0.03); Imm Gran Pct Auto 0.4 % (0.0-0.4); Lymphocytes Absolute Auto 2.3 X10*3/uL (1.2-4.9); Mean Corpuscular HGB Conc 33.4 g/dl (31.0-35.0); Mean Corpuscular Hemoglobin 29.2 pg (27.0-33.0); Mean Corpuscular Volume 87.5 fL (80.0-98.0); NRBC Abs Auto 0.000 X10*3/uL (0.0-0.012); NRBC Pct Auto 0.0 /100WBC (0.0-0.2); Platelet Count 203 X10*3/uL (160-400); Red Blood Count 4.31 X10*6/uL (4.20-5.50); White Blood Count 8.5 X10*3/uL (4.8-10.8)
[2024-12-11 22:27] LABS: INTERNATIONAL NORM RATIO 1.0 (0.9-1.1); Prothrombin Time 11.4 SEC (10.9-12.4)
[2024-12-11 22:30] LABS: Partial Thromboplastin Time 28.1 SEC (26.7-34.1)
[2024-12-11 22:52] VITALS: BP 148/68; PULSE 74; RESP 18; TEMP 36.5; O2SAT 98
[2024-12-11 23:02] LABS: B Type Natriuretic Peptide 21 pg/mL (<100)
[2024-12-12] VITALS: BP 148/68; PULSE 74; RESP 18; TEMP 36.5; O2SAT 98
== END 2024-12-12 00:01 | disposition home or self-care (01) ==
PROVIDERS: Physician Assistant; Emergency Provider Emergency Medicine
DX: R60.0 Localized edema (principal); I10 Essential (primary) hypertension; G31.83 Neurocognitive disorder with Lewy bodies; F02.80 Dementia in other diseases classified elsewhere, unspecified severity, without behavioral disturbance, psychotic disturbance, mood disturbance, and anxiety; Z79.899 Other long term (current) drug therapy
CPT/HCPCS: 36415; 73590; 80053; 83880; 84550; 85025; 85610; 85652; 85730; 86140; 93970; 99283; 99284

== ENCOUNTER → 2024-12-11 18:31 | Outpatient (BNV) | payer MEDICARE, MEDICAID, SELFPAY | PROVIDERS: Visit Provider Student in an Organized Health Care Education/Training Program | DX: R22.43 Localized swelling, mass and lump, lower limb, bilateral (principal) | CPT/HCPCS: 73590; 93970 ==